=== PATIENT | female | born 1965 | race Caucasian/White ===

== ENCOUNTER 2017-07-18 18:42 | Emergency (ER) | payer OTHER, SELFPAY ==
[2017-07-18 19:11] LABS: Bilirubin Negative (Negative); Blood, Urine Large (Negative); Clarity CLEAR (Clear); Glucose, Urine (Dipstick) Negative (Negative); Leukocyte Moderate (Negative); Nitrite Negative (Negative); Protein, Urine (Dipstick) Negative (Neg-Trace); Specific Gravity, Urine 1.019 (1.002-1.036)
[2017-07-18 19:12] LABS: Bacteria/HPF None Seen HPF (None Seen); Hyaline Casts/LPF 0-3 HYALINE CAST LPF (0-3 Hyaline); Pathc Cast-AUWi Flag 0.13 (0-2.49); RBC/HPF GREATER THAN 50-TNTC HPF (0-3); Squamous Epithelial 0-3 HPF (0-3)
[2017-07-18 19:36] LABS: Pregnancy Test - Urine (BHCG) Negative (Negative)
[2017-07-18 19:37] LABS: Pregu Control Background? CLEAR/WHITE (CLR/WHITE); Pregu Control Bar Appear? YES (CONTROL BAR); Specific Gravity 1.019 (1.002-1.036)
[2017-07-18] MEDS ORDERED: Ketorolac Tromethamine 30 MG/ML VIAL ONE ×2 (19:52→20:33)
--- NOTE | 2017-07-18 19:55 | CT ---
CT ABDOMEN AND PELVIS WITHOUT CONTRAST: 07/18/17 Multiple axial tomograms obtained through the abdomen and pelvis without IV enhancement. HISTORY: Left flank pain and abdominal pain. FINDINGS: The lung bases are clear. Liver, spleen and pancreas appear unremarkable. Adrenal glands appear normal. The left kidney is atrophic. There is a 1.2 cm calcification in the left renal pelvis without evidenc e of hydronephrosis. The ureters are unremarkable. The right kidney is unremarkable. Small bowel loop s appear normal. Stool and gas seen throughout the colon. No evidence of diverticulitis identified. Images through the pelvis show unremarkable appearing uterus and adnexa. Aorta is normal caliber with calcification noted. There is a small anterior abdominal wall hernia just to the right of midline superior to the umbilic us. The abdominal wall defect measures 2.0 cm. Mesenteric fat herniates through the defect and the he rnia sac within the subcutaneous tissues measures approximately 6 to 7 cm. IMPRESSION: 1. Atrophic left kidney. There is a 1.2 cm calcification in the left renal pelvis without hydron ephrosis. 2. An anterior abdominal wall hernia to the right of midline above the umbilicus is described ab ove. 3. No acute intra-abdominal process identified. POS: [facility]
[2017-07-18 20:16] LABS: #Eosinphils 0.2 thou/uL (0.0-0.7); #Lymphocytes 2.7 thou/uL (1.20-3.40); #Monocytes 0.5 thou/uL (0.11-0.59); #Neutrophils 2.5 thou/uL (1.40-6.50); %Basophils 0.7 % (0.0-1.0); %Eosinophils 3.5 % (0.0-10.0); %Lymphocytes 45.5 % (21.0-51.0); %Monocytes 9.2 % (0.0-10.0); %Neutrophils 41.2 % (42.0-75.0); Hemoglobin 11.8 g/dL (12.0-16.0); Mean Corpuscular HGB CONC 34.4 g/dL (32.0-36.0); Mean Corpuscular Hemoglobin 30.7 pg (27.0-31.0); Mean Corpuscular Volume 89.1 fl (81.0-99.0); Mean Platelet Volume 6.3 fL (7.4-10.4); Platelet Count 248 thou/uL (130-400); RBC Distribution Width 11.7 % (11.5-14.5); Red Blood Cell (RBC) Count 3.86 mill/uL (4.20-5.40)
[2017-07-18 20:36] LABS: Anion Gap 9 mmol/L (10-20); BUN (Urea Nitrogen) 18 mg/dL (9.8-20.1); Calc. Creatinine Clearance 0 mL/min (70-130); Calcium 9.1 mg/dL (7.8-10.44); Carbon Dioxide 27 mmol/L (22-29); Chloride 107 mmol/L (98-107); Estimated GFR-MDRD 80; Glucose 127 mg/dL (70-105); Potassium 3.8 mmol/L (3.5-5.1); Sodium 139 mmol/L (136-145)
== END 2017-07-18 21:28 | disposition home or self-care (01) ==
LOC: ERS 18:42
DX: N20.0 Calculus of kidney (principal); E03.9 Hypothyroidism, unspecified; E66.9 Obesity, unspecified; F32.9 Major depressive disorder, single episode, unspecified; F41.9 Anxiety disorder, unspecified; F43.10 Post-traumatic stress disorder, unspecified; I10 Essential (primary) hypertension
CPT/HCPCS: 36415; 74176; 80048; 81003; 81015; 81025; 85025; 96372; J1885